=== PATIENT | male | born 1955 | race Caucasian/White ===

== ENCOUNTER 2018-01-09 15:55 | Emergency (ER) | payer OTHER ==
[~2018-01-09] VITALS: Ht 177.8 cm; Wt 79.7 kg
[2018-01-09 16:09] VITALS: TEMP 36.6; Ht 177.8 cm; Wt 79.7 kg
[2018-01-09] MEDS ORDERED: ONDANSETRON INJ 2 MG/ML 2 ML VIAL IV STA (16:19)
[2018-01-09] MEDS ORDERED: SODIUM CHLORIDE 0.9% 1000ML 1,000 ML IV STA (16:19)
[2018-01-09] MEDS ORDERED: FENTANYL CITRATE INJ 50 MCG/1 ML 2 ML VIAL IV STA ×2 (16:19→18:21)
[2018-01-09] MEDS ORDERED: OPTIRAY 320 IV PRN (16:30)
[2018-01-09 16:43] LABS: ISTAT CREATININE 1.3 mg/dl (0.6-1.3); ISTAT IONIZED CALCIUM 1.17 mmol/l (1.12-1.32)
--- NOTE | 2018-01-09 17:04 | DIAGNOSTIC IMAGING REPORT ---
CT OF THE CERVICAL SPINE CLINICAL HISTORY: Neck pain status post trauma COMPARISON STUDY: No previous studies for comparison. CT DOSE: TECHNIQUE: CT scan of the cervical spine was performed from the skull base to the thoracic inlet. Images are reviewed in the axial, sagittal, and coronal planes. IV contrast was not administered for this examination. A dose lowering technique was utilized adhering to the principles of ALARA. FINDINGS: The visualized portions of the lung apices reveal no evidence of pneumothorax. The prevertebral soft tissues are normal. No fractures or subluxations are visualized. There are multilevel degenerative changes, most severe at the C5-6 level. There is partial opacification of both maxillary sinuses. IMPRESSION: No evidence of acute fracture or traumatic subluxation. Electronically signed by: Rajiv Valerio M.D. 01/09/2018 5:02 PM Dictated Date/Time: 01/09/2018 5:00 PM
--- NOTE | 2018-01-09 17:05 | DIAGNOSTIC IMAGING REPORT ---
HEAD CT NONCONTRAST CT DOSE: HISTORY: EVALUATE FOR TRAUMA/INJURY TECHNIQUE: Multiaxial CT images of the head were performed without the use of intravenous contrast. Automated exposure control was utilized for this study. A dose lowering technique was utilized adhering to the principles of ALARA. Comparison: None. Findings: Moderate mucosal thickening within the floor of the right maxillary sinus and mild mucosal thickening within the left maxillary sinus. The mastoid air cells are clear. The calvarium and skull base are intact. The ventricles and sulci are within normal limits. There is no mass, hematoma, midline shift, or acute infarct. Impression: No acute intracranial abnormality. Electronically signed by: Konrad Cox M.D. 01/09/2018 5:04 PM Dictated Date/Time: 01/09/2018 5:00 PM
--- NOTE | 2018-01-09 17:13 | DIAGNOSTIC IMAGING REPORT ---
THORACIC AND LUMBAR SPINE CT CT DOSE: HISTORY: EVALUATE FOR TRAUMA/INJURY TECHNIQUE: Multiaxial CT images of the thoracic and lumbar spine were performed and reformatted in the sagittal and coronal plane without the use of contrast. A dose lowering technique was utilized adhering to the principles of ALARA. COMPARISON: None. FINDINGS: Focal cortical step-off within the superior endplate of the L1 vertebral body consistent with a compression fracture. This demonstrates minimal loss of height. This is age indeterminate. No fractures within the thoracic spine. Moderate degenerative disc disease at L5-S1. No subluxation. Paraspinal soft tissues are unremarkable. L5 millimeters nodule within the right upper lobe on image 120 09/17/2024. Sclerotic focus within the T12 vertebral body favors a bone island. IMPRESSION: 1. No fractures within the thoracic spine 2. Age-indeterminate superior endplate compression fracture at L1 which demonstrates minimal loss of height. Recommend correlation for pain at this location to assess for an acute injury. Electronically signed by: Konrad Cox M.D. 01/09/2018 5:12 PM Dictated Date/Time: 01/09/2018 5:04 PM
--- NOTE | 2018-01-09 17:13 | DIAGNOSTIC IMAGING REPORT ---
CT ABD/PELVIS IV CONTRAST ONLY CLINICAL HISTORY: Abdominal pain status post trauma COMPARISON STUDY: None. TECHNIQUE: Following the IV administration of 119 mL of Optiray-320, CT scan of the abdomen and pelvis was performed from the lung bases to the proximal femurs. Images are reviewed in the axial, sagittal, and coronal planes. IV contrast was administered without complication. A dose lowering technique was utilized adhering to the principles of ALARA. CT DOSE: FINDINGS: Lower chest: There are minor basilar atelectatic changes. No pneumothorax is visualized. Liver: The contrast-enhanced liver is normal in size, contour, and attenuation. There is no intrahepatic biliary ductal dilatation. The hepatic veins and portal veins are patent. Gallbladder: Unremarkable. Spleen: Normal in size and attenuation. Pancreas: Unremarkable. Adrenal glands: Unremarkable. Kidneys: There are bilateral renal hypodensities, the largest of which measures 1 cm. These statistically represent cysts Bowel: There are no transition zones indicate bowel obstruction. No acute inflammatory changes are visualized. There are no extraluminal gas collections. There is no pathologic interloop fluid. Peritoneum: There is no intraperitoneal free air or abdominal ascites. There is subtle nonspecific infiltration of the central mesentery. This is associated with a 8 mm calcified lymph node. 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 Vasculature: The abdominal aorta is normal in course and caliber. Adenopathy: None. Pelvic viscera: There is mild prostamegaly. Skeletal structures: No destructive osseous lesions are seen. No fractures are visualized. There is a nonspecific 8 mm sclerotic lesion within the T12 vertebra. IMPRESSION: 1. No evidence of acute intra-abdominal or pelvic injury 2. 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 01/09/2018 5:12 PM Dictated Date/Time: 01/09/2018 5:07 PM
--- NOTE | 2018-01-09 17:17 | DIAGNOSTIC IMAGING REPORT ---
CT OF THE CHEST WITH IV CONTRAST CLINICAL HISTORY: Chest pain status post trauma COMPARISON STUDY: No previous studies for comparison. TECHNIQUE: Following the IV administration of 119 mL of Optiray-320, CT of the thorax was performed from the thoracic inlet to the lung bases. Images are reviewed in the axial, sagittal, and coronal planes. IV contrast was administered without complication. A dose lowering technique was utilized adhering to the principles of ALARA. CT DOSE: FINDINGS: Thyroid: Imaged portions of the thyroid gland are normal in appearance. Thoracic aorta: The thoracic aorta is normal in course and caliber, noting standard 3-vessel arch anatomy. No aneurysm or dissection is seen. Pulmonary vasculature: The pulmonary trunk is normal in caliber. There are no central filling defects identified to suggest pulmonary embolus. Note that this examination was not protocoled for the evaluation of pulmonary emboli. HEART: The heart is normal in size and configuration, without pericardial effusion. Lungs and pleural spaces: There are no pleural effusions. There is no pneumothorax. There is no evidence of focal pulmonary contusion. There are dependent atelectatic changes. Mediastinum: There is no mediastinal lymphadenopathy. There is no evidence of mediastinal hematoma. Luba: There is no evidence of pathologic hilar lymphadenopathy. Axilla: There is no evidence of pathologic axillary lymphadenopathy. Upper abdomen: Partially visualized upper abdominal viscera is within normal limits. Skeletal structures: There is anterior inferior dislocation of the proximal right humerus with a humeral head fracture. IMPRESSION: 1. No evidence of acute intrathoracic injury 2. Fracture dislocation of the right shoulder. Electronically signed by: Rajiv Valerio M.D. 01/09/2018 5:15 PM Dictated Date/Time: 01/09/2018 5:12 PM
--- NOTE | 2018-01-09 17:18 | DIAGNOSTIC IMAGING REPORT ---
RIGHT SHOULDER CT CT DOSE: 2399.03 mGy.cm HISTORY: R shoulder pain TECHNIQUE: Multiaxial CT images of the right shoulder were performed and reformatted in the sagittal and coronal plane without the use of contrast. A dose lowering technique was utilized adhering to the principles of ALARA. COMPARISON: None. FINDINGS: There is a 5 mm right upper lobe pulmonary nodule on image 111. No right-sided pneumothorax. The right scapula, right clavicle, and visualized right ribs are intact. Mild AC joint arthrosis. Small right joint effusion. The right axillary and brachial arteries appear patent. There is a right anterior shoulder dislocation with a large Hill-Sachs impaction fracture. The glenoid is located within the large defect of the Hill-Sachs impaction fracture. There are few small displaced bony fragments from the humeral head fracture. These demonstrate up to 12 mm of lateral displacement. The glenoid rim appears intact. IMPRESSION: 1. There is a right anterior shoulder dislocation with a large Hill-Sachs impaction fracture. The glenoid is located within the large defect of the Hill-Sachs impaction fracture. 2. A 5 mm right upper lobe pulmonary nodule. Please refer to below summary of Fleischner criteria recommendations for follow-up of incidental CT nodules (Rishi Hui, Guidelines for management of small pulmonary nodules detected on CT scans: A statement from the Fleischner Society, Radiology 237: [phone].) SOLID NODULES Solitary nodule size: <6 mm * Low risk patients: no follow-up needed * high risk patients: optional CT at 12 months Solitary nodule size: 6-8 mm * Low risk patients: follow-up at 6-12 months, then consider further follow-up at 18-24 months * high risk patients: initial follow-up CT at 6-12 months and then at 18-24 months if no change Solitary nodule size: >8 mm * either low or high risk patients - consider follow-up CT at 3 months, and/or CT-PET, and/or biopsy Multiple nodules size: <6 mm * Low risk patients: no routine follow-up * high risk patients: optional CT at 12 months Multiple nodules size: 6-8 mm * Low risk patients: follow-up at 3-6 months, then consider further follow-up at 18-24 months * high risk patients: follow-up at 3-6 months, then at 18-24 months if no change Multiple nodules size: >8 mm * Low risk patients: follow-up at 3-6 months, then consider further follow-up at 18-24 months * high risk patients: follow-up at 3-6 months, then at 18-24 months if no change Note: newly detected indeterminate nodule in persons 35 years of age or older. * Low risk patients: minimal or absent history of smoking and/or other known risk factors * high risk patients: history of smoking or of other known risk factors (e.g. first degree relative with lung cancer, or exposure to asbestos, radon, uranium) * if a nodule up to 8 mm is partly solid or is ground glass further follow-up is required after 24 months to exclude possible slow growing adenocarcinoma (MILES) SUBSOLID NODULES Solitary pure ground-glass nodule * nodule size <6 mm - no CT follow-up required * nodule size >=6 mm - follow-up CT at 6-12 months, then every 2 years until 5 years Solitary part-solid nodule * nodule size <6 mm - no CT follow-up required * nodule size >=6 mm - follow-up CT at 3-6 months. If unchanged, and solid component remains <6 mm, then annual follow-up for 5 years Multiple subsolid nodules * nodule size <6 mm - follow-up CT at 3-6 months, consider further follow-up at 2 and 4 years if stable * nodule size >=6 mm - follow-up CT at 3-6 months, subsequent management based on the most suspicious nodule(s) Electronically signed by: Konrad Cox M.D. 01/09/2018 5:17 PM Dictated Date/Time: 01/09/2018 5:12 PM
--- NOTE | 2018-01-09 17:48 | DIAGNOSTIC IMAGING REPORT ---
L FEMUR 2 VIEWS ROUTINE CLINICAL HISTORY: EVALUATE FOR TRAUMA/INJURY. Fall. Left leg pain. COMPARISON STUDY: None. FINDINGS: No fracture or dislocation within the left femur. The visualized pelvic bones are intact. Soft tissues are unremarkable. No significant knee effusion. IMPRESSION: No fracture or dislocation within the left femur. Electronically signed by: Konrad Cox M.D. 01/09/2018 5:47 PM Dictated Date/Time: 01/09/2018 5:44 PM
--- NOTE | 2018-01-09 19:30 | DIAGNOSTIC IMAGING REPORT ---
R SHOULDER MIN 2 VIEWS ROUTINE CLINICAL HISTORY: Right shoulder pain status post trauma COMPARISON: None. DISCUSSION: There is an anterior shoulder dislocation, with a large Hill-Sachs humeral head fracture. IMPRESSION: Anterior shoulder dislocation with a large Hill-Sachs humeral head fracture fragment measuring 23 mm. Electronically signed by: Rajiv Valerio M.D. 01/09/2018 7:29 PM Dictated Date/Time: 01/09/2018 7:27 PM
--- NOTE | 2018-01-09 19:31 | EMERGENCY ROOM VISIT NOTE ---
ED Visit Note First contact with patient: 16:14 The patient was seen and examined with Richard Morin PA-C. I agree with the history, physical and findings. Please see the note for disposition and details. Patient suffered a fall out of the tree. He CT imaging thankfully did not reveal any significant intracranial, spinal, thoracic or abdominal findings. He had a benign cervical examination. The patient has suffered a right shoulder dislocation with Hill-Sachs deformity. Orthopedic was consulted and recommended standard dislocation reduction. This was attempted pain medication and was unsuccessful. The patient was consented for sedation. Last meal was this morning. He has no contraindications. The patient and consented. Vital Signs Past 12 Hours Date Time Temp Pulse Resp B/P (MAP) Pulse Ox O2 Delivery O2 Flow Rate FiO2 01/09/18 22:16 74 18 125/77 98 Room Air 01/09/18 21:29 81 01/09/18 21:26 84 18 126/96 98 Room Air 01/09/18 21:00 70 20 136/79 98 Room Air 01/09/18 20:51 28 22 138/78 99 Nasal Cannula 2.0 01/09/18 20:50 80 18 138/78 100 Nasal Cannula 2.0 01/09/18 20:48 68 22 137/88 100 Nasal Cannula 2.0 01/09/18 20:45 67 22 137/88 99 Nasal Cannula 2.0 01/09/18 20:37 76 16 136/77 100 Non-Rebreather 15.0 01/09/18 20:19 73 16 136/78 99 Nasal Cannula 2.0 01/09/18 19:03 70 145/78 96 Room Air 01/09/18 18:38 74 17 138/76 90 01/09/18 17:22 72 01/09/18 17:00 80 25 145/82 96 Room Air 01/09/18 16:41 96 Room Air 01/09/18 16:35 67 17 123/75 96 Room Air 01/09/18 16:09 36.6 72 20 119/69 96 Room Air GENERAL: Awake, alert, uncomfortable appearing, no acute distress HEAD: Normocephalic, atraumatic. No tristan sign. No raccoon eyes. EYES: Normal conjunctiva. PERRL. EARS: External ears normal. NOSE: Atraumatic OROPHARYNX: Lips, tongue, and mucosa unremarkable. No erythema or exudate. NECK: No tracheal deviation or JVD. No posterior midline tenderness. No step offs noted. RESPIRATORY: CTA bilaterally. Breath sounds equal. No wheezes. No rhonchi. Normal respiratory effort. CARDIAC: Regular regular rate, normal rhythm. No murmurs. No rubs. ABDOMEN: Inspection reveals no abnormalities. Soft, non distended. No tenderness to palpation. No hernias. BACK: No midline step offs or tenderness to palpation. Unremarkable. PELVIS: Stable to rock. SKIN: Normal. LYMPH: No adenopathy. MUSCULOSKELETAL: Left upper extremity was atraumatic. Right lower extremity is atraumatic. Several contusions and abrasions noted on the proximal left lower extremity. No bony deformity. There is an obvious dislocation of the right shoulder. Right upper extremity NVI. NEURO: GCS 15. Normal sensorium. No sensory or motor deficits noted. Last 24 Hours Test 01/09/18 16:28 Bedside Hemoglobin 14.6 g/dl Bedside Hematocrit 43 % Bedside Sodium 143 mEq/L Bedside Potassium 4.0 mEq/L Bedside Chloride 104 mEq/L Bedside Total CO2 25 mEq/l Anion Gap 19.0 mmol/L Bedside Blood Urea Nitrogen 20 mg/dl Bedside Creatinine 1.3 mg/dl Bedside Glucose (other) 175 mg/dl Bedside Ionized Calcium (Fatou) 1.17 mmol/l Anterior Shoulder Dislocation Reduction Indication: Fracture dislocation of the right shoulder Written and verbal consent obtained. Risks and benefits were explained with the usual customary discussion. A time out was taken. Neurovascular examination before the procedure revealed no abnormalities. The right shoulder glenohumeral dislocation reduction was attempted by placing the patient prone and applying gentle downward inline traction on the humerus, with the elbow flexed at 90 degrees, while scapula manipulation was applied. This was unsuccessful. The patient then required procedural sedation and a traction countertraction maneuver was utilized to successfully reduce the fracture dislocation. Neurovascular examination after the procedure revealed no abnormalities. The patient had significant pain relief and tolerated the procedure well. Procedural Sedation Indication fracture dislocation right shoulder.. Total time: 15 minutes. Written consent was obtained after the risks and benefits were explained to the patient and , including, but not limited to aspiration, allergic reaction, breathing difficulties, cardiac complications, vomiting, pain, event recall, bleeding, and/or infection. Pre-sedation examination and paperwork completed. The patient was on 100% oxygen via NRB prior to the procedure. Continous end tidal CO2 monitoring, pulse oximetry, and cardiac monitoring were utilized. Suction, airway equipment, medications, respiratory equipment, and appropriate personnel were prepared prior to the initiation of the procedure. A time out was taken. Sedation was achieved utilizing a total of 140 mg of propofol in incremental doses. After I observed the patient had reached the appropriate level of sedation the main procedure was performed without complication. Sedation was discontinued and the monitoring continued. The patient recovered quickly from the effects of the medication without complication or adverse event.
--- NOTE | 2018-01-09 19:33 | EMERGENCY ROOM VISIT NOTE ---
Pre-Mod Sedation Assessment General Date of Moderate Sedation: Jan 09, 2018. Vital Signs: Vital Signs Past 12 Hours Date Time Temp Pulse Resp B/P (MAP) Pulse Ox O2 Delivery O2 Flow Rate FiO2 01/09/18 19:03 70 145/78 96 Room Air 01/09/18 18:38 74 17 138/76 90 01/09/18 17:22 72 01/09/18 17:00 80 25 145/82 96 Room Air 01/09/18 16:41 96 Room Air 01/09/18 16:35 67 17 123/75 96 Room Air 01/09/18 16:09 36.6 72 20 119/69 96 Room Air Review Cardiovascular: regular rate, rhythm, no JVD, no murmur Abdomen: non tender, soft Lungs: lungs clear, normal breath sounds Airway Class: I Pre-Sedation Airway Assessment Oral Cavity: WNL Short Thick Neck: No Hx of Sleep Apnea: No Smoking Status: Never Smoker Mallampati Classification: Class I ASA Classification: Class I Procedure Planning Contraindications-for Mod Sed: None Yes Notes The planned sedation has been discussed with the patient and consent obtained. I have identified the patient, determined the appropriateness of sedation and have assessed the patient immediately prior to the procedure. All medicine(s) and interventions are by my order.
--- NOTE | 2018-01-09 19:35 | EMERGENCY ROOM VISIT NOTE ---
Post-Moderate Sedation Plan General Date of Moderate Sedation Jan 09, 2018. Vital Signs: Vital Signs Past 12 Hours Date Time Temp Pulse Resp B/P (MAP) Pulse Ox O2 Delivery O2 Flow Rate FiO2 01/09/18 19:03 70 145/78 96 Room Air 01/09/18 18:38 74 17 138/76 90 01/09/18 17:22 72 01/09/18 17:00 80 25 145/82 96 Room Air 01/09/18 16:41 96 Room Air 01/09/18 16:35 67 17 123/75 96 Room Air 01/09/18 16:09 36.6 72 20 119/69 96 Room Air Review - Discharge Plan Post Moderate Sedation Plan: On clinical assessment, the patient appears to have tolerated the conscious sedation without complications. Patient is recovering as anticipated. Patient was monitored by nursing and discharged after conscious sedation discharge criteria were met.
[2018-01-09] MEDS ORDERED: PROPOFOL IV EMULSION 10 MG/ML 20 ML VIAL IV STA (20:01)
[2018-01-09 20:48] VITALS: BP 137/88; PULSE 68; O2SAT 100
[2018-01-09 20:51] VITALS: BP 138/78; PULSE 28; O2SAT 99
[2018-01-09] MEDS ORDERED: OXYCODONE IR HOME PACK PO ONE (21:00)
[2018-01-09] MEDS ORDERED: OXYC-90 PO (21:03)
--- NOTE | 2018-01-09 21:05 | DIAGNOSTIC IMAGING REPORT ---
R SHOULDER MIN 2 VIEWS ROUTINE CLINICAL HISTORY: Right shoulder dislocation status post reduction COMPARISON: 01/09/2018 DISCUSSION: There is been interval reduction of the previously described dislocation. There is a large head Hill-Sachs deformity. IMPRESSION: 1. Large humeral head Hill-Sachs deformity 2. Interval reduction of the previously described dislocation. Electronically signed by: Rajiv Valerio M.D. 01/09/2018 9:04 PM Dictated Date/Time: 01/09/2018 9:03 PM
--- NOTE | 2018-01-09 21:57 | EMERGENCY ROOM VISIT NOTE ---
History First contact with patient: 16:14 Chief Complaint: FALL Stated Complaint: SHOULDER PAIN, OUT OF PLACE History of Present Illness The patient is a 62 year old male who presents to the Emergency Room with complaints of injuries after falling approximately 30 feet out of a tree. The patient was climbing and trimming trees when he slipped and fell. The patient reports that he hit a limb on the way down, landing on his left leg. This slowed him down before he fell to the ground, landing on his right side. The patient denies any complaint other than right shoulder pain. He denies headache , neck pain, loss of consciousness, chest pain, shortness of breath, back pain or abdominal pain. He complains of only mild left thigh pain. Denies paresthesias or numbness of the upper or lower extremities. He rates his pain an 8 out of 10. The patient is right-hand dominant. Review of Systems HEENT: Denies dizziness, visual problems, hearing loss, tinnitus. Denies difficulty swallowing or oral lesions. PULMONARY: Denies cough, shortness of breath, sputum production or hemoptysis. CARDIOVASCULAR: Denies chest pain, palpitations, dyspnea on exertion, orthopnea or peripheral edema. GASTROINTESTINAL: Denies diarrhea, constipation, nausea, vomiting, or abdominal pain. GENITOURINARY: Denies dysuria, frequency, urgency or nocturia. NEUROLOGIC: Denies history of epilepsy, CVA, TIA or chronic headaches. MUSCULOSKELETAL: Denies history of joint tenderness/swelling. SKIN: Denies rashes or lesions. PSYCHIATRIC: Denies history of depression or mental illness. ENDOCRINE: Denies history of diabetes, thyroid disorders, abnormal hair growth or sexual dysfunction. Past Medical/Surgical History Medical Problems: (1) No significant past medical history (2) No significant past medical history Surgical Problems: (1) No history of previous surgery (2) No history of previous surgery Family History Unremarkable Social History Smoking Status: Never Smoker Alcohol Use: occasionally Marital Status: Housing Status: lives with family Occupation Status: employed Current/Historical Medications Scheduled PRN Oxycodone Ir (Roxicodone Ir), 1 TAB PO Q4H PRN for Pain Physical Exam Vital Signs Date Time Temp Pulse Resp B/P (MAP) Pulse Ox O2 Delivery O2 Flow Rate FiO2 01/09/18 21:29 81 01/09/18 21:26 84 18 126/96 98 Room Air 01/09/18 21:00 70 20 136/79 98 Room Air 01/09/18 20:51 28 22 138/78 99 Nasal Cannula 2.0 01/09/18 20:50 80 18 138/78 100 Nasal Cannula 2.0 01/09/18 20:48 68 22 137/88 100 Nasal Cannula 2.0 01/09/18 20:45 67 22 137/88 99 Nasal Cannula 2.0 01/09/18 20:37 76 16 136/77 100 Non-Rebreather 15.0 01/09/18 20:19 73 16 136/78 99 Nasal Cannula 2.0 01/09/18 19:03 70 145/78 96 Room Air 01/09/18 18:38 74 17 138/76 90 01/09/18 17:22 72 01/09/18 17:00 80 25 145/82 96 Room Air 01/09/18 16:41 96 Room Air 01/09/18 16:35 67 17 123/75 96 Room Air 01/09/18 16:09 36.6 72 20 119/69 96 Room Air Physical Exam CONSTITUTIONAL: Healthy and well nourished. Alert and oriented X 3 with positive affect. Patient appears in moderate discomfort, complaining of right shoulder pain. GCS 15. HEENT: Normocephalic, atraumatic. Pupils equal, round and reactive. No epistaxis, hemotympanum, subconjunctival hemorrhage, raccoon's eyes or tristan sign. NECK: The patient is exhibiting full active range of motion without discomfort as I entered the room. I immediately asked for cervical collar placement. RESPIRATORY: Clear to auscultation bilaterally with no wheezing, crackles, rhonchi or stridor. Patient has no tenderness to palpation across the chest wall. The breathing does not cause any shoulder discomfort. CARDIOVASCULAR: Regular rate and rhythm with no murmurs, rubs or gallops. GASTROINTESTINAL: Bowel sounds present in all quadrants. Soft and nontender to palpation. MUSCULOSKELETAL: Complete and comprehensive musculoskeletal exam was performed. The patient has a palpable deformity of the right anterior shoulder. No ecchymosis or open wounds noted. Patient has mild tenderness to palpation of the left anterolateral thigh without laceration or open wound. Otherwise the patient has no tenderness to palpation through the thoracolumbar spine, ribs or left upper/right lower extremity. Distal pulses are intact. INTEGUMENTARY: No rash or other significant dermatologic conditions noted. NEUROLOGIC: Upper and lower extremities are sensory intact. Medical Decision & Procedures ER Provider Diagnostic Interpretation: My interpretation of an ECG shows a normal sinus rhythm of [address] elevation or other conduction abnormalities. Noncontrast CT of the head, cervical spine and thoracolumbar spine were normal. CT of the chest, abdomen and pelvis with IV contrast were also normal. Noncontrast CT of the right upper extremity shows a Hill-Sachs fracture with anterior dislocation, as well as other fracture fragments lateral to the humeral head. Radiologist report is as follows: RIGHT SHOULDER CT CT DOSE: 2399.03 mGy.cm HISTORY: R shoulder pain TECHNIQUE: Multiaxial CT images of the right shoulder were performed and reformatted in the sagittal and coronal plane without the use of contrast. A dose lowering technique was utilized adhering to the principles of ALARA. COMPARISON: None. FINDINGS: There is a 5 mm right upper lobe pulmonary nodule on image 111. No right-sided pneumothorax. The right scapula, right clavicle, and visualized right ribs are intact. Mild AC joint arthrosis. Small right joint effusion. The right axillary and brachial arteries appear patent. There is a right anterior shoulder dislocation with a large Hill-Sachs impaction fracture. The glenoid is located within the large defect of the Hill-Sachs impaction fracture. There are few small displaced bony fragments from the humeral head fracture. These demonstrate up to 12 mm of lateral displacement. The glenoid rim appears intact. IMPRESSION: 1. There is a right anterior shoulder dislocation with a large Hill-Sachs impaction fracture. The glenoid is located within the large defect of the Hill-Sachs impaction fracture. 2. A 5 mm right upper lobe pulmonary nodule. Repeat x-ray of the right shoulder after initial reduction attempt showed a persistent anterior dislocation. Repeat shoulder x-ray after successful reduction showed a large Hill-Sachs deformity with good glenohumeral reduction. Radiologist report is as follows: R SHOULDER MIN 2 VIEWS ROUTINE CLINICAL HISTORY: Right shoulder dislocation status post reduction COMPARISON: 01/09/2018 DISCUSSION: There is been interval reduction of the previously described dislocation. There is a large head Hill-Sachs deformity. IMPRESSION: 1. Large humeral head Hill-Sachs deformity 2. Interval reduction of the previously described dislocation. Laboratory Results Test 01/09/18 16:28 Bedside Hemoglobin 14.6 g/dl (14.0-18.0) Bedside Hematocrit 43 % (42-52) Bedside Sodium 143 mEq/L (135-144) Bedside Potassium 4.0 mEq/L (3.3-5.0) Bedside Chloride 104 mEq/L (101-112) Bedside Total CO2 25 mEq/l (24-31) Anion Gap 19.0 mmol/L (16-25) Bedside Blood Urea Nitrogen 20 mg/dl (7-18) Bedside Creatinine 1.3 mg/dl (0.6-1.3) Bedside Glucose (other) 175 mg/dl (70-99) Bedside Ionized Calcium (Fatou) 1.17 mmol/l (1.12-1.32) The above labs were reviewed and grossly normal, including creatinine. Medications Administered Medications (Trade) Dose Ordered Sig/Lary Route Start Time Stop Time Status Last Admin Dose Admin Sodium Chloride 1,000 ml @ 999 mls/hr Q1H1M STAT IV 01/09/18 16:19 01/09/18 17:19 DC 01/09/18 16:29 999 MLS/HR Fentanyl Citrate (Fentanyl Inj) 100 mcg ONE STAT IV 01/09/18 16:19 01/09/18 16:24 DC 01/09/18 16:30 100 MCG Ondansetron HCl (Zofran Inj) 4 mg NOW STAT IV 01/09/18 16:19 01/09/18 16:24 DC 01/09/18 16:29 4 MG Fentanyl Citrate (Fentanyl Inj) 100 mcg NOW STAT IV 01/09/18 18:21 01/09/18 18:22 DC 01/09/18 18:29 100 MCG Propofol (Diprivan Iv Emulsion 20ml Vial) 200 mg NOW STAT IV 01/09/18 20:01 01/09/18 20:02 DC 01/09/18 20:43 20 MG Procedure Initial attempt at reduction was performed after administering an additional fentanyl 100 mcg IV infusion. Patient was placed in a prone position with his right arm over the side of the bed. While holding the forearm parallel to floor , and humerus perpendicular to the floor, attempted reduction was performed on multiple occasions. I did feel a slight translation on the last attempt. The patient was rolled over onto his back to discover that he still had limited range of motion of the shoulder. I tried an additional attempt with pronation and forward flexion of the shoulder without success. The patient was then evaluated by Dr. Vizcaino who also attempted similar reduction with the patient in a prone position. I also provided scapular rotation, again without successful reduction. A repeat x-ray still showed an anterior dislocation. At this point, conscious sedation was administered. Please see Dr. Vizcaino' s for further sedation details. After the patient was adequately sedated, the shoulder was successfully reduced. A post reduction x-ray shows good reduction. An arm sling was applied. The patient recovered from anesthesia without any complications. ED Course Patient history and physical exam were performed. Nurse's notes were reviewed. Vital signs were reviewed and were normal. The patient complains of right shoulder pain. He denies any other significant pain except for mild left thigh pain. GCS 15. Rapid assessment does not show any open wounds. IV access was established, and i-STAT labs were drawn, ordered and were normal. The patient was administered fentanyl 100 mcg and Zofran 4 mg IVP. The patient then went a trauma scan from the head to the pelvis, showing no intrathoracic or intra- abdominal trauma. Scans of the head, cervical spine, back and pelvis were also normal. A separate scan of the right shoulder shows a right anterior shoulder dislocation with a large Hill-Sachs impaction fracture. The glenoid is located within the large defect of the Hill-Sachs impaction fracture. Additional small displaced bony fragments are also noted lateral to the humeral head. The glenoid rim appeared intact. An incidental 5 mm right upper lobe pulmonary nodule was also noted. The patient had excellent pain control with the IV fentanyl. The case was further discussed with Dr. Vizcaino, ED attending physician, and recommended orthopedic consultation. The case was further discussed with Dr. Hinkle, orthopedic surgeon front desk coordinator, who reviewed x-rays and felt that a routine reduction in the emergency department would be fine for this fracture dislocation. He recommended applying an arm sling and internal rotation, and have the patient follow-up in his office for further management. Several attempts at reducing the patient after administration of additional IV fentanyl 100 mcg were unsuccessful. This reduction was also attempted with the assistance of Dr. Vizcaino, again without success after x-ray showed a persistent anterior dislocation. At this point, reduction had to be performed under conscious sedation, and was successful. Please see Dr. Vizcaino's dictation for further sedation details. Postreduction x-rays were performed, showing successful reduction. The patient was encouraged to limit use of the right upper extremity. He was encouraged to intermittently apply ice to the shoulder. A sling immobilizer was applied. Ibuprofen and Tylenol in alternating f the patient was dispensed a home pack and provided a prescription for OxyIR as needed for breakthrough pain. No drinking alcohol or driving while taking OxyIR. The patient was provided contact information for Dr. Hinkle's office, and instructed to call the office for an appointment. The patient reports that he may be leaving for [place] sometime next week. In case he is out of the area, he was provided a copy of his images on disc to follow-up with an orthopedic surgeon while in [place]. The patient and were happy with plan of care, and the patient denied any significant discomfort at the time of discharge. Medical Decision Workup today does not show any other more significant intracranial, cervical spine, intrathoracic or intra-abdominal trauma. The patient remained hemodynamically stable while in the emerge department. Unfortunately shoulder fracture reduction could not be performed without conscious sedation. The patient was encouraged to seek further reevaluation for any further developing and concerning symptoms from his fall. [place] Drug Monitoring Program Search Results: patient reviewed within database, no issues identified Medication Reconcilliation Current Medication List: was personally reviewed by ut Blood Pressure Screening Patient's blood pressure: Normal blood pressure Impression Primary Impression: Closed fracture dislocation of right shoulder Additional Impressions: Contusion of left thigh, initial encounter Fall from tree Departure Information Prescriptions Oxycodone Ir (Roxicodone Ir) 5 Mg Tab 1 TAB PO Q4H Y for Pain, #15 TAB For Initial Treatment Prov: Richard Morin PA 01/09/18 Patient Instructions My [facility] Problem Qualifiers Primary Impression: Closed fracture dislocation of right shoulder Encounter type: initial encounter Qualified Codes: S42.91XA - Fracture of right shoulder girdle, part unspecified, initial encounter for closed fracture Additional Impressions: Fall from tree Encounter type: initial encounter Qualified Codes: W14.XXXA - Fall from tree , initial encounter
[2018-01-09 22:16] VITALS: BP 125/77; PULSE 74; O2SAT 98
== END 2018-01-09 22:25 | disposition home or self-care (01) ==
LOC: C.EDB 15:57 → C.EDD 22:25
DX: S42.91XA Fracture of right shoulder girdle, part unspecified, initial encounter for closed fracture (principal); S70.12XA Contusion of left thigh, initial encounter; W14.XXXA Fall from tree, initial encounter; R91.1 Solitary pulmonary nodule